=== PATIENT | male | born 1990 | race African-American/Black ===

== ENCOUNTER 2020-06-04 08:40 | Emergency (ER) | payer SELFPAY ==
[~2020-06-04] VITALS: Ht 188 cm; Wt 103.6 kg
[2020-06-04] MEDS ORDERED: cefTRIAXone SODIUM 1 GM VIAL ONE (09:41)
[2020-06-04] MEDS ORDERED: IV NORMAL SALINE 50ML 50 ML ONE (09:41)
[2020-06-04] MEDS ORDERED: IV NORMAL SALINE 1,000ML 1,000 ML IV ONE ×2 (09:45→19:15)
--- NOTE | 2020-06-04 10:05 | RAD ---
Examination: CHEST AP ONLY History: cough Comparison: None. Findings: AP portable upright frontal view of the chest was obtained. The cardiomediastinal silhouette is normal. Lungs are clear. There is no pneumothorax. No pleural effusion is appreciated. No acute bone abnormality. IMPRESSION: No acute cardiopulmonary process. Electronically signed by: Bruce Durán MD (06/04/2020 10:02 AM) [id number]
[2020-06-04 10:18] LABS: BASO % 0 % (0-3); EOS % 0 % (0-3); HEMATOCRIT 48.5 % (39.0-53.0); HEMOGLOBIN 15.9 g/dL (13.0-17.5); LYMPH # 1.7 x10^3/uL (1.0-4.8); LYMPH % 13 % (24-48); MEAN CORPUSCULAR HEMOGLOBIN 30 pg (25-35); MEAN CORPUSCULAR HGB CONC 33 g/dL (31-37); MEAN CORPUSCULAR VOLUME 92 fL (79-100); MONO # 0.8 x10^3/uL (0.0-1.1); MONO % 7 % (0-9); NEUT # 9.9 x10^3uL (1.8-7.7); NEUT % 80 % (31-73); PLATELET COUNT 350 x10^3/uL (140-400); RED BLOOD COUNT 5.27 x10^6/uL (4.30-5.70); RED CELL DISTRIBUTION WIDTH 13.7 % (11.5-14.5); WHITE BLOOD COUNT 12.4 x10^3/uL (4.0-11.0)
[2020-06-04 10:27] LABS: CALCIUM 9.5 mg/dL (8.5-10.1); CREATININE 1.5 mg/dL (0.7-1.3); GFR 71.5; POTASSIUM 3.6 mmol/L (3.5-5.1)
[2020-06-04 10:42] LABS: ALBUMIN/GLOBULIN RATIO 1.1 (1.0-1.7); TOTAL BILIRUBIN 0.6 mg/dL (0.2-1.0); TOTAL PROTEIN 7.8 g/dL (6.4-8.2)
[2020-06-04 12:05] LABS: BARBITURATES NEG (NEG); BENZODIAZEPINES NEG (NEG); CANNABINOIDS NEG (NEG); COCAINE POS (NEG); METHADONE NEG (NEG); OPIATES NEG (NEG); PHENCYCLIDINE NEG (NEG)
[2020-06-04 12:08] LABS: AMPHETAMINE/METHAMPHETAMINE POS (NEG)
[2020-06-04 12:11] LABS: BILIRUBIN,URINE NEG (NEG); CLARITY,URINE CLEAR; COLOR,URINE AMBER; GLUCOSE,URINE NEG (NEG)
[2020-06-04 12:12] LABS: BACTERIA,URINE 0 /HPF (0-FEW); NITRITE,URINE NEG (NEG); SQUAMOUS EPITHELIAL CELL,UR OCC /LPF; WBC,URINE 0 /HPF (0-4)
--- NOTE | 2020-06-04 15:15 | PHYS DOC ---
Past History Past Medical History: No Pertinent History (DAVID WHITE MD) Past Surgical History: No Surgical History (DAVID WHITE MD) Alcohol Use: Rarely (DAVID WHITE MD) Adult General Chief Complaint Chief Complaint: FEVER HPI HPI Patient is 30-year-old male who presents to the emergency room with bizarre beh avior. Patient is unable to provide a full history. He states that he can feel with and himself that something is wrong because he is seeing signs. He is unable to explain to us what kind of symptoms he is having. Patient is very agitated and history is limited. (DAVID WHITE MD) Review of Systems Review of Systems Unable to obtain due to altered mental status (DAVID WHITE MD) Current Medications Current Medications Current Medications Medications (Trade) Dose Ordered Sig/Butch Start Time Stop Time Status Last Admin Dose Admin Ceftriaxone Sodium 1 gm/ Sodium Chloride 50 ml @ 100 mls/hr 1X ONCE 06/04/20 09:45 06/04/20 10:14 DC 06/04/20 10:16 100 MLS/HR Ceftriaxone Sodium (Rocephin) 1 gm STK-MED ONCE 06/04/20 09:41 06/04/20 09:41 DC Lorazepam (Ativan Inj) 2 mg 1X ONCE 06/04/20 12:15 06/04/20 12:16 DC 06/04/20 12:16 2 MG Sodium Chloride 1,000 ml @ 1,000 mls/hr 1X ONCE 06/04/20 09:45 06/04/20 10:44 DC 06/04/20 10:15 1,000 MLS/HR (DAVID WHITE MD) Allergies Allergies Allergies Coded Allergies Type Severity Reaction Last Updated Verified No Known Drug Allergies 06/04/20 No (DAVID WHITE MD) Physical Exam Physical Exam General: Awake, alert, moderate distress. Well Nourished, well hydrated. Uncooperative intermittently HEENT: Atraumatic, EOMI, PERRL, airway patent, moist oral mucosa Neck: Supple, trachea midline Respiratory: CTA bilaterally, normal effort, no wheezing/crackles CV: Sinus tachycardia, no murmur, cap refill <2 GI: Soft, nondistended, nontender, no masses MSK: No obvious deformities Skin: Warm, dry, intact Neuro: A&O x3, speech NL, sensory and motor grossly intact, no focal deficits Psych: Anxious, agitated, hyperverbal, hallucinating (DAVID WHITE MD) Current Patient Data Vital Signs Vital Signs Date Time Temp Pulse Resp B/P (MAP) Pulse Ox O2 Delivery O2 Flow Rate FiO2 06/04/20 10:23 111 20 169/119 (136) 99 Room Air 06/04/20 09:00 100.5 Lab Results Laboratory Tests Test 06/04/20 09:42 06/04/20 09:56 Urine Collection Type Unknown Urine Color Jenny Urine Clarity Clear Urine pH 6.5 Urine Specific Bannister 1.025 Urine Protein 100 mg/dl (NEG-TRACE) Urine Glucose (UA) Neg mg/dL (NEG) Urine Ketones (Stick) Neg mg/dL (NEG) Urine Blood Neg (NEG) Urine Nitrite Neg (NEG) Urine Bilirubin Neg (NEG) Urine Urobilinogen Dipstick 1.0 mg/dL (0.2 mg/dL) Urine Leukocyte Esterase Neg (NEG) Urine RBC 1-2 /HPF (0-2) Urine WBC 0 /HPF (0-4) Urine Squamous Epithelial Cells Occ /LPF Urine Bacteria 0 /HPF (0-FEW) Urine Opiates Screen Neg (NEG) Urine Methadone Screen Neg (NEG) Urine Barbiturates Neg (NEG) Urine Phencyclidine Screen Neg (NEG) Urine Amphetamine/Methamphetamine Pos (NEG) Urine Benzodiazepines Screen Neg (NEG) Urine Cocaine Screen Pos (NEG) Urine Cannabinoids Screen Neg (NEG) Urine Ethyl Alcohol Neg (NEG) White Blood Count 12.4 x10^3/uL (4.0-11.0) H Red Blood Count 5.27 x10^6/uL (4.30-5.70) Hemoglobin 15.9 g/dL (13.0-17.5) Hematocrit 48.5 % (39.0-53.0) Mean Corpuscular Volume 92 fL (79-100) Mean Corpuscular Hemoglobin 30 pg (25-35) Mean Corpuscular Hemoglobin Concent 33 g/dL (31-37) Red Cell Distribution Width 13.7 % (11.5-14.5) Platelet Count 350 x10^3/uL (140-400) Neutrophils (%) (Auto) 80 % (31-73) H Lymphocytes (%) (Auto) 13 % (24-48) L Monocytes (%) (Auto) 7 % (0-9) Eosinophils (%) (Auto) 0 % (0-3) Basophils (%) (Auto) 0 % (0-3) Neutrophils # (Auto) 9.9 x10^3uL (1.8-7.7) H Lymphocytes # (Auto) 1.7 x10^3/uL (1.0-4.8) Monocytes # (Auto) 0.8 x10^3/uL (0.0-1.1) Eosinophils # (Auto) 0.0 x10^3/uL (0.0-0.7) Basophils # (Auto) 0.0 x10^3/uL (0.0-0.2) Sodium Level 137 mmol/L (136-145) Potassium Level 3.6 mmol/L (3.5-5.1) Chloride Level 100 mmol/L (98-107) Carbon Dioxide Level 25 mmol/L (21-32) Anion Gap 12 (6-14) Blood Urea Nitrogen 11 mg/dL (8-26) Creatinine 1.5 mg/dL (0.7-1.3) H Estimated GFR (Cockcroft-Gault) 71.5 BUN/Creatinine Ratio 7 (6-20) Glucose Level 129 mg/dL (70-99) H Lactic Acid Level 3.2 mmol/L (0.4-2.0) H Calcium Level 9.5 mg/dL (8.5-10.1) Total Bilirubin 0.6 mg/dL (0.2-1.0) Aspartate Amino Transferase (AST) 20 U/L (15-37) Alanine Aminotransferase (ALT) 49 U/L (16-63) Alkaline Phosphatase 66 U/L (46-116) Lactate Dehydrogenase 226 U/L (85-227) Total Protein 7.8 g/dL (6.4-8.2) Albumin 4.0 g/dL (3.4-5.0) Albumin/Globulin Ratio 1.1 (1.0-1.7) Ethyl Alcohol Level < 10 mg/dL (0-10) (DAVID WHITE MD) EKG EKG [] (DAVID WHITE MD) Radiology/Procedures Radiology/Procedures [] (DAVID WHITE MD) Course & Med Decision Making Course & Med Decision Making Pertinent Labs and Imaging studies reviewed. (See chart for details) Patient is a 30-year-old male who presents the emergency room with unknown complaints. History is severely limited due to patient's mental status. Upon arrival to the emergency room patient is on the phone arguing with his brother. Triage and exam more delayed significantly due to this long argument. Upon my evaluation patient is hallucinating, agitated, and appears significantly altered. His presentation is concerning for intoxication. At this time cannot ensure that intoxication is the cause of his altered mental status, tachycardia, and mildly elevated temperature. Infectious work-up was ordered including a COVID swab. Patient does not have any coughing or URI symptoms while here in the emergency room. His drug screen did come back positive for methamphetamines and cocaine. I did discuss him with his mother with his permission. She states that there is no that he is an addict and will pick him up when he is sober. The rest of the patient's work-up was negative. Patient will be observed here in the emergency room until sober (DAVID WHITE MD) Course & Med Decision Making The patient has been given 2 L normal saline for his elevated lactic acid. I believe this is all due to the drug use. He is now awake and calm. His mother is offered to come and pick him up. I believe the patient is stable for discharge at this time. (LITA OKEEFE DO) Dragon Disclaimer Dragon Disclaimer This electronic medical record was generated, in whole or in part, using a voice recognition dictation system. (DAVID WHITE MD) Departure Departure: Impression: Primary Impression: Hallucinations Additional Impressions: Altered mental status Methamphetamine abuse Cocaine abuse Disposition: 01 HOME/RESIDENCE PRIOR TO ADM Condition: STABLE Referrals: PCP,MIGUEL A (PCP) Patient Instructions: Alcohol and Drug Addiction, Finding Treatment Problem Qualifiers DAVID WHITE MD Jun 04, 2020 15:15 LITA OKEEFE DO Jun 04, 2020 20:12
[2020-06-04] MEDS ORDERED: HALOPERIDOL LACT 5 MG/ML VIAL. IVP ONE (15:30)
[2020-06-04 19:49] VITALS: BP 114/73
--- NOTE | 2020-06-06 15:03 | NUR ---
IP: attempt to notify patient of COVID result, left call back message.
== END 2020-06-04 21:02 | disposition home or self-care (01) ==
LOC: EDBD 08:40 → ER 08:40
DX: R41.82 Altered mental status, unspecified (principal); R44.3 Hallucinations, unspecified; F15.10 Other stimulant abuse, uncomplicated; F14.10 Cocaine abuse, uncomplicated; Z03.818 Encounter for observation for suspected exposure to other biological agents ruled out
CPT/HCPCS: 36415; 71045; 80053; 80307; 81001; 83605; 83615; 85025; 87040; 96361; 96365; 96366; 96375; 96376; 99285; G0480; J0696; J1630; J2060; J7030; U0003